=== PATIENT | male | born 1990 | race Caucasian/White ===

== ENCOUNTER → 2016-04-25 | Day surgery (SDC) | payer OTHER | LOC: RAD 13:15 | PROVIDERS: ATTEND Orthopaedic Surgery | PROC: BP0 Imaging, Non-Axial Upper Bones, Plain Radiography (ICD-10-PCS; principal; 2016-04-25) | DX: M75.41 Impingement syndrome of right shoulder (principal) | CPT/HCPCS: 73222; 73040; 77002; A9576 ==

== ENCOUNTER 2018-05-16 10:24 | Emergency (ER) | payer BC, OTHER ==
[2018-05-16 10:39] VITALS: BP 111/68
[2018-05-16] MEDS ORDERED: KETOROLAC TROMETHAMINE INJ/PF 30 MG/1 ML SDV IM ONE (11:04)
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
== END 2018-05-16 11:35 | disposition home or self-care (01) ==
LOC: ER 10:24
DX: J06.9 Acute upper respiratory infection, unspecified (principal); R09.81 Nasal congestion; R05 Cough; R50.9 Fever, unspecified; R59.0 Localized enlarged lymph nodes; K08.89 Other specified disorders of teeth and supporting structures; J02.9 Acute pharyngitis, unspecified; H92.09 Otalgia, unspecified ear
CPT/HCPCS: 99283; 96372; J1885